=== PATIENT | female | born 1980 | race Caucasian/White ===

== ENCOUNTER 2023-06-05 14:23 | Outpatient (CLI) | payer OTHER, SELFPAY ==
--- NOTE | 2023-06-05 14:40 | CRLHL7_ITS ---
For Patients: As a result of the Century Cures Act, medical imaging exams and procedure reports are released immediately into your electronic medical record. You may view this report before your referring provider. If you have questions, please contact your health care provider. BILATERAL DIGITAL SCREENING MAMMOGRAM WITH TOMOSYNTHESIS AND COMPUTER-AIDED DETECTION CLINICAL HISTORY: Routine screening exam. COMPARISON: 03/29/2022, 06/09/2021, 06/22/2021. TECHNIQUE: Digital mammogram in CC and MLO projections including computer-aided detection (CAD). Tomosynthesis utilized. BREAST COMPOSITION: The breasts are heterogeneously dense, which may obscure small masses. FINDINGS: RIGHT Breast: No suspicious findings. LEFT Breast: Focal asymmetric density within the lower outer quadrant 6 cm from the nipple. IMPRESSION: LEFT breast asymmetry/mass. RECOMMENDATIONS: Additional mammographic views of the LEFT breast including 3D spot compression MLO and 3D spot compression CC. LEFT breast ultrasound may also be required. BI-RADS Category 0: Incomplete: Need Additional Imaging Evaluation and/or Prior Mammograms for Comparison [facility] will contact the patient for follow-up. A lay language report of this examination will be provided to the patient. Dictated by Harry Amos MD @ 06/07/2023 1:10:06 PM jj/Dictated by: Harry Amos MD @ 06/07/2023 1:10:00 PM (Electronically Signed)
== END 2023-06-05 14:24 | disposition home or self-care (01) ==
LOC: MAMMO 14:24
PROVIDERS: Visit Provider Registered Nurse
DX: Z12.31 Encounter for screening mammogram for malignant neoplasm of breast (principal); N63.20 Unspecified lump in the left breast, unspecified quadrant
CPT/HCPCS: 77063; 77067

== ENCOUNTER 2023-06-14 08:35 | Outpatient (CLI) | payer OTHER, SELFPAY ==
--- NOTE | 2023-06-14 08:45 | CRLHL7_ITS ---
For Patients: As a result of the Cures Act, medical imaging exams and procedure reports are released immediately into your electronic medical record. You may view this report before your referring provider. If you have questions, please contact your health care provider. DIGITAL DIAGNOSTIC LEFT MAMMOGRAM USING TOMOSYNTHESIS AND COMPUTER-AIDED DETECTION LEFT BREAST ULTRASOUND CLINICAL HISTORY: LEFT breast mass/asymmetry. COMPARISON: 06/05/2023. TECHNIQUE: Digital LEFT mammogram in two projections. Tomosynthesis and CAD utilized. Real-time ultrasound imaging of LEFT breast with imaging documentation. BREAST COMPOSITION: The breast is heterogeneously dense, which may obscure small masses. FINDINGS: 3D spot compression CC/MLO LEFT breast mammogram images submitted. Decreased conspicuity of previously noted asymmetric density. No architectural distortion or suspicious calcifications. Targeted LEFT breast ultrasound performed at 4 o`clock 6 cm from the nipple. 4 x 4 x 2 millimeter simple cyst is present. No solid masses. IMPRESSION: Benign fibrocystic changes LEFT breast 4 o`clock 6 cm from the nipple with a 4 millimeter simple cyst. No evidence of malignancy. RECOMMENDATIONS: Annual BILATERAL screening mammography. Results and recommendations discussed with the patient. BI-RADS Category 2: Benign A lay language report of this examination will be provided to the patient. Dictated by Harry Amos MD @ 06/14/2023 9:36:19 AM /Dictated by: Harry Amos MD @ 06/14/2023 9:36:00 AM (Electronically Signed)
--- NOTE | 2023-06-14 09:15 | CRLHL7_ITS ---
For Patients: As a result of the Century Cures Act, medical imaging exams and procedure reports are released immediately into your electronic medical record. You may view this report before your referring provider. If you have questions, please contact your health care provider. PLEASE SEE LEFT DIAGNOSTIC MAMMOGRAM OF SAME DAY. CRL:larissa ROGER/Dictated by: Harry Amos MD @ 06/14/2023 9:36:00 AM (Electronically Signed)
== END 2023-06-14 08:36 | disposition home or self-care (01) ==
LOC: MAMMO 08:36
PROVIDERS: Visit Provider Obstetrics & Gynecology
DX: N63.20 Unspecified lump in the left breast, unspecified quadrant (principal); R92.8 Other abnormal and inconclusive findings on diagnostic imaging of breast
CPT/HCPCS: 76642; 77065; G0279

== ENCOUNTER 2024-06-13 14:29 | Outpatient (CLI) | payer OTHER, SELFPAY ==
--- OUTSIDE RECORDS SUMMARY | 2024-06-13 14:31 | XMS_ITS | Clinical Summary ---
Author Organization [facility] Address [place], [place] [address] Care Team Providers Care Landing Man Name Role Phone Nacho Mitchell MD Primary Care Provider [phone] Allergies No known active allergies Medications No known medications Immunizations Name Administration Dates Next Due Tdap 12/06/2017,02/07/2008 Social History Tobacco Use Types Packs/Day Years Used Date Smoking Tobacco: Never Smokeless Tobacco: Never Tobacco Cessation:Counseling Given: Yes Alcohol Use Standard Drinks/Week Comments No 0 (1 standard drink = 0.6 oz pur e alcohol) PHQ-2 Answer Date Recorded PHQ-2 Score 0 12/29/2018 Sex and Gender Information Value Date Recorded Sex Assigned at Not on file Gender Identity Not on file Sexual Orientation Not on file Obstetrics History Last Filed Vital Signs Vital Sign Reading Time Taken Comments Blood Pressure 117/72 05/31/2018 8:37 AM CDT Pulse 80 05/31/2018 8:37 AM CDT Temperature 37.4 ??C (99.3 ??F) 01/15/2014 10:35 AM C DT Respiratory Rate 18 01/15/2014 12:00 PM CDT Oxygen Saturation 100% 05/31/2018 8:37 AM CDT Inhaled Oxygen Concentration - - Weight 64.9 kg (143 lb) 05/31/2018 8:37 AM CDT Height 169 cm (5' 6.54) 05/31/2018 8:37 AM CDT Body Mass Index 22.71 05/31/2018 8:37 AM CDT Plan of Treatment Health Maintenance Due Date Last Done Comments HIV for age 15-65 1995 Hepatitis C screening for ag e 18-79 1998 Depression screening for age 12+ 04/05/2019 04/05/2018 BMI (ht and wt on same day) for age 18+ 05/31/2019 05/31/2018, 04/05/2018 COVID-19 vaccine series (2022-24 season) 2023 Pap test for age 21-65 04/08/2024 , 04/08/2021 Influenza for age 9-49 06/29/2024 Tetanus booster 12/06/2027 12/06/2017, 02/07/2008 Tdap Completed 12/06/2017, 02/07/2008 Pneumococcal series for age 6-64 Aged Out No longer eligible b ased on patient's age to complete this topic Procedures Procedure Name Priority Date/Time Associated Diagnosis Comments [employer] THIN PREP PAP SCREEN IMAGED Routine 04/08/2021 3:15 PM CDT from Last 3 Months or Most Recently Relevant to Health Maintenance Results * DISTANCE EDUCATION TEACHER THIN PREP PAP SCREEN IMAGED (04/08/2021 3:15 PM CDT) Case Report Gynecologic Cytology Report ? Case: [id number] ? Authorizing Provider: ??Britney Dan MD ?Collected: ? 04/08/2021 1515 ? Ordering Location: ? [facility] ?Received: ?04/11/2021 0926 ? First Screen: ?Jake Shah ? Specimen: ?DISTANCE EDUCATION TEACHER ThinPrep Vial Screening, Cervical/Vaginal ? 04/20/2021 12:00 PM CDT [facility] INTERPRETATION/ RESULT NEGATIVE FOR INTRAEPITHELIAL LESION OR MALIGNANCY (NIL) (none) 04/20/2021 12:00 PM CDT [facility] IMEN ADEQUACY Satisfactory for evaluation Endocervical component present 04/20/2021 12:00 PM CDT [facility] HPV REQUEST HPV and PAP 04/20/2021 12:00 PM CDT [facility] Date of LMP 03/30/2021 04/20/2021 12:00 PM CDT [facility] Last Pap Date 12/18/2017 04/20/2021 12:00 PM CDT [facility] Last Pap Result NIL 12:00 PM CDT [facility] Additional Information 04/20/2021 12:00 PM CDT [facility] Comment: Interpreted at [facility] - [address] [place] [id number] Automated Review Successful 04/20/2021 12:00 PM T [facility] Comment:Specimen processed s uccessfully by automated labor economics professor device, ThinPrep Imaging System, [employer] ANCILLARY TESTING DISTANCE EDUCATION TEACHER HPV Ordered, Please see separate report 04/20/2021 12:00 PM CDT [facility] Note The pap test is a screening technique, not a diagnostic procedure. It is used primarily to screen for squamous cancers and precursor lesions. Published studies have shown that it is subject to both false negative and false positive results. The pap test should not be used as the sole means to diagnose or exclude pre-malignant and malignant lesions. 04/20/2021 12:00 PM CDT [facility] Other (Cervical/Vagina l) 04/08/2021 3:15 PM CDT 04/11/2021 9:26 AM CDT Britney Dan MD PATHOLOGY/CYTOLOGY [facility] [address] [place] [address], [place] from Last 3 Months or Most Recently Relevant to Health Maintenance Advance Directives * Full Code (Latest Code Status on File) Date Activated Date Inactivated Comments 01/15/2014 10:23 AM 01/15/2014 2:20 PM Care Teams Landing Man Relationship Specialty Start Date End Date Nacoh Mitchell MD [address] [place] [address] PCP - General Family Practice 05/31/18
--- NOTE | 2024-06-13 14:40 | CRLHL7_ITS ---
For Patients: As a result of the Century Cures Act, medical imaging exams and procedure reports are released immediately into your electronic medical record. You may view this report before your referring provider. If you have questions, please contact your health care provider. BILATERAL SCREENING MAMMOGRAM WITH COMPUTER-AIDED DETECTION AND TOMOSYNTHESIS TECHNIQUE: CC and MLO views were obtained. These mammographic images have been obtained using full-field digital technique. These mammographic images were interpreted with the benefit of computer-aided detection. Breast Tomosynthesis was used in this interpretation. COMPARISON FILM: 06/05/23, 03/29/22, 06/09/21. FINDINGS: The breasts are heterogeneously dense, which may obscure small masses. IMPRESSION: There is no radiographic evidence for malignancy. ASSESSMENT: BI-RADS Category 1: Negative RECOMMENDATION: Routine screening mammogram in 1 year. A lay language report of this examination will be provided to the patient. Harry Amos M.D. Diagnostic Radiologist [email or web address] SP/Dictated by: Harry Amos MD @ 06/16/2024 9:00:00 AM (Electronically Signed)
== END 2024-06-13 14:30 | disposition home or self-care (01) ==
LOC: MAMMO 14:29
PROVIDERS: Visit Provider Registered Nurse
DX: Z12.31 Encounter for screening mammogram for malignant neoplasm of breast (principal); R92.2 Inconclusive mammogram
CPT/HCPCS: 77063; 77067

== ENCOUNTER 2024-11-18 18:14 | Outpatient (CLI) | payer OTHER, SELFPAY | END 2024-11-18 18:15 | disposition home or self-care (01) | LOC: NFLDREF 18:15 | PROVIDERS: Visit Provider Registered Nurse | DX: Z13.220 Encounter for screening for lipoid disorders (principal) | CPT/HCPCS: 80061 ==

== ENCOUNTER 2024-12-10 12:46 | Outpatient (CLI) | payer OTHER, SELFPAY | END 2024-12-10 12:47 | disposition home or self-care (01) | LOC: RAD 12:48 | PROVIDERS: PCP Internal Medicine; Visit Provider Internal Medicine | DX: Q27.8 Other specified congenital malformations of peripheral vascular system (principal) | CPT/HCPCS: 93306 ==

== ENCOUNTER 2025-08-17 14:29 | Outpatient (CLI) | payer OTHER, SELFPAY ==
--- NOTE | 2025-08-17 14:40 | CRLHL7_ITS ---
For Patients: As a result of the Century Cures Act, medical imaging exams and procedure reports are released immediately into your electronic medical record. You may view this report before your referring provider. If you have questions, please contact your health care provider. INDICATION: BILATERAL SCREENING MAMMOGRAM, ASYMPTOMATIC 45 Y/O FEMALE COMPARISON: 06/13/2024, 06/14/2023, 06/05/2023 TECHNIQUE: Digital mammogram in CC and MLO projections including computer-aided detection (CAD) and tomosynthesis. BREAST COMPOSITION: The breasts are heterogeneously dense, which may obscure small masses. FINDINGS: No suspicious findings. ASSESSMENT: BI-RADS 1 Negative RECOMMENDATION: Annual screening mammogram. A lay language report of this examination will be provided to the patient. Dictated by: Harry Amos MD @ 08/18/2025 09:12:20 (Electronically Signed)
== END 2025-08-17 14:30 | disposition home or self-care (01) ==
LOC: MAMMO 14:29
PROVIDERS: PCP Internal Medicine; Visit Provider Registered Nurse
DX: Z12.31 Encounter for screening mammogram for malignant neoplasm of breast (principal); R92.333 Mammographic heterogeneous density, bilateral breasts
CPT/HCPCS: 77063; 77067